=== PATIENT | female | born 1970 | race Caucasian/White ===

== ENCOUNTER 2017-07-13 16:10 | Emergency (ER) | payer SELFPAY ==
[~2017-07-13 16:10] MED LIST: ACE500 PO; AMO500 PO; AUG875 PO; AZI250 PO; AZIT1PAC21 PO; CODEINE; COLD; DIP25 PO; ERY250 PO; FLUT16SP20 NS; GUAI-225 PO; HYDR-3078 PO; HYDR473S4 PO; IBU200 PO; IBU800 PO; IBUP-1455 PO; LOR5 PO; LOR5/325 PO; MULTIVIT PO; NAP250 PO; NO RTN MEDS; PER PO; PRE20 PO; PROC5L PO; TRA50 PO; [UNRECOGNIZED DRUG - CODE] PO; [UNRECOGNIZED DRUG - OTHER]
[2017-07-13 16:30] VITALS: BP 131/85
--- NOTE | 2017-07-13 16:40 | ER Report ---
History and Physical Time Seen By MD: 16:10 HPI/ROS This is a 46-year-old female who presents to the emergency department to a half days after she thinks she had an insect bite while she was sleeping. She is complaining of itching and swelling at the site of the bites on her right hand. She has no other complaints. Remainder of the 14 system rev: Yes Allergies: Coded Allergies: aspirin (Verified Allergy, Mild, RASH, SHAKINESS, 11/19/11) cefuroxime (Verified Allergy, Mild, EYES DILATE, SHAKINESS, 11/19/11) Home Meds Active Scripts Hydrocortisone/Aloe Vera (Cortizone-10 1% Creme) 1 % Cream..g., 1 UNIT TOP QID for 5 Days, GM Prov:ZEINAB BERGER MD 07/13/17 Cephalexin Monohydrate (CEPHALEXIN) 500 Mg Cap, 500 MG PO BID for 5 Days, #10 CAP 0 Refills Prov:ZEINAB BERGER MD 07/13/17 Reported Medications Ibuprofen (Ibuprofen M) 200 Mg Tablet, 800 MG PO 11/19/11 Discontinued Reported Medications Acetaminophen/Hydrocodone (Lortab 5/325 Mg) 5 Mg/325 Mg Tab, 1 - 2 TAB PO Q4-6H Y, #30 11/19/11 Reviewed Nurses Notes: Yes Old Medical Records Reviewed: Yes Hx Smoking: Yes Hx Substance Use Disorder: No Hx Alcohol Use: No Constitutional Vital Sign - Last 24 Hours 07/13/17 16:30 Temp 97.8 Pulse 89 Resp 16 B/P (MAP) 131/85 Pulse Ox 93 O2 Delivery Room Air Physical Exam General Appearance: The patient is alert, has no immediate need for airway protection and no current signs of toxicity. Eyes: Pupils equal and round no injection. Skin: 2 small lesions that could be c/w insect bite on her right dorsal hand. Mild edema. No erythema. No swelling of fingers or evidence of deep infection. No abscess DIFFERENTIAL DIAGNOSIS: After history and physical exam differential diagnosis was considered for deep infection, cellulitis, reaction to bite, abscess Medical Decision Making ED Course/Re-evaluation ED Course This is an otherwise healthy pleasant 46-year-old female who presents to the emergency department with swelling in the dorsal aspect of her right hand and evidence of possible insect bite. There is no evidence of a deep space infection or other abscess. The swelling is likely from the reaction itself. No systemic symptoms of toxic. No abdominal pain. No erythema or warmth to suggest cellulitis. Nonetheless I did give the patient 5 days of Keflex to prevent infection. I also prescribed her cortisone cream to apply to her hand to help with the itching. There was no trauma and no need for imaging. She will follow- up with her primary care doctor. Decision to Disposition Date: July 13, 2017 Decision to Disposition Time: 17:24 Depart Departure Latest Vital Signs Vital Signs Date Time Temp Pulse Resp B/P (MAP) Pulse Ox O2 Delivery O2 Flow Rate FiO2 07/13/17 16:30 97.8 89 16 131/85 93 Room Air Impression: Primary Impression: INSECT BITE (NONVENOMOUS) OF RIGHT HAND, INITIAL ENCOUNTER Condition: Improved Disposition: HOME OR SELF-CARE New Scripts Hydrocortisone/Aloe Vera (Cortizone-10 1% Creme) 1 % Cream..g. 1 UNIT TOP QID for 5 Days, GM Prov: ZEINAB BERGER MD 07/13/17 Cephalexin Monohydrate (CEPHALEXIN) 500 Mg Cap 500 MG PO BID for 5 Days, #10 CAP 0 Refills Prov: ZEINAB BERGER MD 07/13/17 Patient Instructions: Insect Bite or Sting (ED) ZEINAB BERGER MD July 13, 2017 16:40
[2017-07-13] MEDS ORDERED: CEPH500C24 PO (17:32)
[2017-07-13] MEDS ORDERED: HYDR28CR TOP (17:32)
== END 2017-07-13 17:39 | disposition home or self-care (01) ==
LOC: ER 16:22
DX: S60.561A Insect bite (nonvenomous) of right hand, initial encounter (principal)
CPT/HCPCS: 99282

== ENCOUNTER 2017-10-02 14:45 | Emergency (ER) | payer SELFPAY ==
[~2017-10-02 14:45] MED LIST changes: +CEPH500C24 PO; +HYDR28CR TOP
[2017-10-02 14:50] VITALS: BP 123/77
--- NOTE | 2017-10-02 14:52 | ER Report ---
History and Physical Time Seen By MD: 14:51 HPI/ROS CHIEF COMPLAINT: cough HISTORY OF PRESENT ILLNESS: Pt states she started two weeks ago with runny nose , sneezing and cough that was clear sputum. Since then pts symptoms are now only in her chest. Sputum has changed to yellow. Pt denies fever. + cp with the cough. Unable to sleep secondary to coughing. Pt is a smoker REVIEW OF SYSTEMS: Constitutional: No fever, no chills. Eyes: No discharge. ENT: No sore throat, + nasal congestion Cardiovascular: No chest pain, no palpitations. Respiratory: + cough, + shortness of breath. Gastrointestinal: No abdominal pain, no vomiting. Genitourinary: No hematuria. Musculoskeletal: No back pain. Skin: No rashes. Neurological: No headache. Allergies: Coded Allergies: aspirin (Verified Allergy, Mild, RASH, SHAKINESS, 10/02/17) cefuroxime (Verified Allergy, Mild, EYES DILATE, SHAKINESS, 10/02/17) Home Meds Discontinued Reported Medications Ibuprofen (Ibuprofen M) 200 Mg Tablet, 800 MG PO 11/19/11 Discontinued Scripts Hydrocortisone/Aloe Vera (Cortizone-10 1% Creme) 1 % Cream..g., 1 UNIT TOP QID for 5 Days, GM Prov:ZEINAB BERGER MD 07/13/17 Cephalexin Monohydrate (CEPHALEXIN) 500 Mg Cap, 500 MG PO BID for 5 Days, #10 CAP 0 Refills Prov:ZEINAB BERGER MD 07/13/17 Past Medical/Surgical History Pmhx: denies Pshx: ear surgery, tonsilectomy, hyster, r ankle Reviewed Nurses Notes: Yes Old Medical Records Reviewed: Yes Hx Smoking: Yes Smoking Status: Current: Every Day Smoker Hx Substance Use Disorder: No Hx Alcohol Use: No Constitutional Vital Sign - Last 24 Hours 10/02/17 14:50 Resp 20 O2 Delivery Room Air Physical Exam General Appearance: The patient is alert, has no immediate need for airway protection and no signs of toxicity. Eyes: Pupils equal and round no pallor or injection, EOMI ENT: no pharyngeal erythema or exudates, Mucous membranes are moist, TM are nl b/l Respiratory: There are no retractions, + rhonchi , no active wheezing Cardiovascular: Regular rate and rhythm. pulses are equal and symmetrical Gastrointestinal: Abdomen is soft and non tender, no masses, bowel sounds normal, no guarding, no rigidity or rebound Neurological: Cranial nerves II-XII grossly intact, no sensory or motor loss Skin: Warm and dry, no rashes. Musculoskeletal: Neck is supple non tender, no vertebral tenderness Extremities are nontender, non swollen and have full range of motion. DIFFERENTIAL DIAGNOSIS: After history and physical exam differential diagnosis was considered for pnuemonia, bronchitis, uri Medical Decision Making ED Course/Re-evaluation ED Course PT is an active smoker with >10 days of cough. Will treat with abx. Pt declined xray when offered Decision to Disposition Date: Oct 02, 2017 Decision to Disposition Time: 15:00 Depart Departure Latest Vital Signs Vital Signs Date Time Temp Pulse Resp B/P (MAP) Pulse Ox O2 Delivery O2 Flow Rate FiO2 10/02/17 14:50 20 Room Air Impression: Primary Impression: Bronchitis Condition: Condition Unchanged Disposition: HOME OR SELF-CARE New Scripts Promethazine HCl/Codeine (Promethazine-Codeine Syrup) 6.25 Mg-10 Mg/5 Ml Syrup 5 ML PO Q4-6H Y for COUGH, #120 ML Prov: JOHNATHAN RIVERA DO 10/02/17 Azithromycin 250 Mg Tab (AZITHROMYCIN 250 MG TAB) 250 Mg Tablet 250 MG PO QDAY, #6 TAB 2 pills 500mg today then 1 pill 250mg daily for 4 more days. Prov: JOHNATHAN RIVERA DO 10/02/17 Patient Instructions: Acute Bronchitis (GEN) Additional Instructions: zithromax 500mg today then 250mg once a day for 4 more days. Cough syrup one teaspoon every 4 hours as needed for cough. Follow up with your doctor. JOHNATHAN RIVERA DO Oct 02, 2017 14:52
[2017-10-02] MEDS ORDERED: AZIT-18 PO (15:06)
[2017-10-02] MEDS ORDERED: PROM473S4 PO (15:06)
== END 2017-10-02 15:14 | disposition home or self-care (01) ==
LOC: ER 14:53
DX: J40 Bronchitis, not specified as acute or chronic (principal); F17.200 Nicotine dependence, unspecified, uncomplicated
CPT/HCPCS: 99282

== ENCOUNTER 2017-12-26 09:06 | Emergency (ER) | payer SELFPAY ==
[~2017-12-26 09:06] MED LIST changes: +AZIT-18 PO; +PROM473S4 PO
[2017-12-26 09:17] VITALS: BP 130/87
--- NOTE | 2017-12-26 10:23 | RADIOLOGY IMAGING REPORT ---
FACILITY: [facility] PATIENT NAME: Elvira Rey : 1970 MR: [id number] V: [id number] EXAM DATE: ORDERING PHYSICIAN: BEVERLY BENITEZ TECHNOLOGIST: Location: [facility] [place] Patient: Elvira Rey : 1970 Visit/Account:[id number] Date of Sevice: 12/26/2017 Exam type: ELBOW 3 VIEWS RIGHT History: SWELLING,PAIN, trauma Comparison: None. Findings: There is no evidence of acute fracture, dislocation or significant arthritic change involving the rig ht elbow. IMPRESSION: 1. No evidence of acute fracture, dislocation or significant arthritic change involving the right el bow Report Dictated By: Myranda Renteria MD at 12/26/2017 10:18 AM Report E-Signed By: Myranda Renteria MD at 12/26/2017 10:19 AM WSN:[email or web address]
--- NOTE | 2017-12-26 10:35 | ER Report ---
History and Physical Time Seen By MD: 10:32 Hx. of Stated Complaint: Patient was walking her dog on a leash yesterday and he pulled her arm, and she heard a pop in her right elbow HPI/ROS CHIEF COMPLAINT: Right elbow pain HISTORY OF PRESENT ILLNESS: Patient is a 47-year-old female here with complaints of right elbow pain after being pulled by her dog last night. Patient reports having medial posterior elbow tenderness with range of motion and palpation. Patient denies weakness of the distal extremity or further injury at this time. REVIEW OF SYSTEMS: Constitutional: No fever, no chills. Musculoskeletal: Right medial posterior elbow pain Skin: No ecchymosis or pallor Neurological: Patient is neurovascularly intact distal to the injury site Allergies: Coded Allergies: aspirin (Verified Allergy, Mild, RASH, SHAKINESS, 12/26/17) cefuroxime (Verified Allergy, Mild, EYES DILATE, SHAKINESS, 12/26/17) albuterol (Verified Adverse Reaction, Unknown, shaky headache, 12/26/17) Home Meds Active Scripts Tramadol Hcl (TRAMADOL HCL) 50 Mg Tablet, 50 MG PO Q6H PRN for PAIN, #12 TAB 0 Refills Prov:BEVERLY BENITEZ DO 12/26/17 Naproxen Sodium (ALEVE) 220 Mg Capsule, 440 MG PO TID, #30 CAPSULE Prov:BEVERLY BENITEZ DO 12/26/17 Discontinued Scripts Promethazine HCl/Codeine (Promethazine-Codeine Syrup) 6.25 Mg-10 Mg/5 Ml Syrup, 5 ML PO Q4-6H PRN for COUGH, #120 ML Prov:JOHNATHAN RIVERA V DO 10/02/17 Azithromycin 250 Mg Tab (AZITHROMYCIN 250 MG TAB) 250 Mg Tablet, 250 MG PO QDAY, #6 TAB 2 pills 500mg today then 1 pill 250mg daily for 4 more days. Prov:JOHNATHAN RIVERA V DO 10/02/17 Hx Smoking: Yes Smoking Status: Current: Every Day Smoker Hx Substance Use Disorder: No Hx Alcohol Use: No Constitutional Vital Sign - Last 24 Hours 12/26/17 09:17 Temp 98.4 Pulse 69 Resp 18 B/P (MAP) 130/87 Pulse Ox 93 O2 Delivery Room Air Physical Exam General Appearance: The patient is alert, has no immediate need for airway protection and no signs of toxicity. No acute distress Neurological: Neurovascularly intact distal to the extremity section Skin: Warm and dry, no rashes. Musculoskeletal: Tender to palpation on the right medial posterior elbow, pain with range of rowdy on. [ ] DIFFERENTIAL DIAGNOSIS: After history and physical exam differential diagnosis was considered for contusion, fracture, dislocation, sprain. Medical Decision Making EKG/Imaging Imaging Exam type: ELBOW 3 VIEWS RIGHT History: SWELLING,PAIN, trauma Comparison: None. Findings: There is no evidence of acute fracture, dislocation or significant arthritic change involving the right elbow. IMPRESSION: 1. No evidence of acute fracture, dislocation or significant arthritic change involving the right elbow ED Course/Re-evaluation ED Course Patient is a 39-year-old female here with complaints of right elbow pain in the medial and posterior aspect of the elbow which is tender on palpation and with range of motion. There is no obvious deformity at time of evaluation, patient was neurovascularly intact distal to the injury site with good capillary refill. X-ray imaging showed no acute deformities. Patient was provided prescription for tramadol naproxen and advised to follow up with PCP in the next several days. Patient was stable at time of discharge, afebrile and in no acute distress. Patient was provided with a sling for comfort. Decision to Disposition Date: Dec 26, 2017 Decision to Disposition Time: 10:45 Depart Departure Latest Vital Signs Vital Signs Date Time Temp Pulse Resp B/P (MAP) Pulse Ox O2 Delivery O2 Flow Rate FiO2 12/26/17 09:17 98.4 69 18 130/87 93 Room Air Impression: Primary Impression: Elbow sprain Condition: Improved Disposition: HOME OR SELF-CARE New Scripts Tramadol Hcl (TRAMADOL HCL) 50 Mg Tablet 50 MG PO Q6H PRN for PAIN, #12 TAB 0 Refills Prov: BEVERLY BENITEZ DO 12/26/17 Naproxen Sodium (ALEVE) 220 Mg Capsule 440 MG PO TID, #30 CAPSULE Prov: BEVERLY BENITEZ DO 12/26/17 Departure Forms: ER Transition Record, Medications Reconciliation, Off Work/School Form, School or Work Release?: Work Number of days to be released: 1 Patient Portal Information Patient Instructions: Arm Pain (ED) Additional Instructions: You may take 500 mg tablet naproxen every 12 hours as needed for pain control. He may take tramadol 1 tablet every 6-8 hours as needed for pain control breakthrough. You may use a sling for comfort. Please apply ice, rest, elevate as needed for pain control. Please return if you develop worsening pain, numbness or tingling, weakness in the arms BEVERLY BENITEZ DO Dec 26, 2017 10:35
[2017-12-26] MEDS ORDERED: NAPR220C12 PO (10:46)
[2017-12-26] MEDS ORDERED: TRAM-420 PO (10:46)
== END 2017-12-26 11:06 | disposition home or self-care (01) ==
LOC: ER 09:26
DX: S53.401A Unspecified sprain of right elbow, initial encounter (principal)
CPT/HCPCS: 73080; 99283; A4565

== ENCOUNTER 2018-01-11 04:34 | Emergency (ER) | payer BC ==
[~2018-01-11 04:34] MED LIST changes: +NAPR220C12 PO; +TRAM-420 PO
--- NOTE | 2018-01-11 04:37 | ER Report ---
History and Physical Time Seen By MD: 04:43 (SHON GRIJALVA MD) Time Seen By MD: 07:00 (PRABHJOT BERGER MD) HPI/ROS CHIEF COMPLAINT: Abdominal pain and nausea HISTORY OF PRESENT ILLNESS: This is a 47-year-old female. She woke this morning with some abdominal discomfort which is worsened. She has some stabbing and cramping quality pain in the left abdomen. He was to worsen with movement. Nothing makes it better. She has been having some nausea but no vomiting. She did have a bowel movement this morning which was not diarrhea but was a little loose. She denies any pain or difficulty urinating or urinary frequency. No fevers or chills this morning. REVIEW OF SYSTEMS: Constitutional: No fever or chills. Eyes: No vision changes. ENT: No sore throat. No congestion. Cardiovascular: No chest pain. No palpitations. Respiratory: No cough. No shortness of breath. Gastrointestinal: As above. Genitourinary: As above. Musculoskeletal: No back pain. No extremity pain. Skin: No rashes. No bruising. Neurological: No numbness. No weakness. (SHON GRIJALVA MD) HPI/ROS CHIEF COMPLAINT: abdominal pain HISTORY OF PRESENT ILLNESS: Patient awoke with left lower quadrant abdominal pain at approximately zero 100 last night. Pain has persisted through the night is now with left lower quadrant, suprapubic, right lower abdominal pain. Pain is persistent, moderately severe. Patient complains of nausea but no vomiting. No fevers or chills. No weight loss, night sweats. No chest pain, shortness breath. No vaginal bleeding. No diarrhea/constipation REVIEW OF SYSTEMS: Constitutional: No fever, no chills. Eyes: No discharge. ENT: No sore throat. Cardiovascular: No chest pain, no palpitations. Respiratory: No cough, no shortness of breath. Gastrointestinal: above Genitourinary: No hematuria. Musculoskeletal: No back pain. Skin: No rashes. Neurological: No headache. Remainder of the 14 system rev: Yes (PRABHJOT BERGER MD) Allergies: Coded Allergies: aspirin (Verified Allergy, Mild, RASH, SHAKINESS, 12/26/17) cefuroxime (Verified Allergy, Mild, EYES DILATE, SHAKINESS, 12/26/17) albuterol (Verified Adverse Reaction, Unknown, shaky headache, 12/26/17) Home Meds Active Scripts Docusate Sodium (COLACE) 100 Mg Capsule, 100 MG PO BID for 10 Days, #20 CAPSULE Prov:PRABHJOT BERGER MD 01/11/18 Hydrocodone Bit/Acetaminophen (NORCO 5-325 TABLET) 1 Each Tablet, 1 EACH PO Q4- 6H for PAIN for 7 Days, #20 TAB Prov:PRABHJOT BERGER MD 01/11/18 Discontinued Scripts Tramadol Hcl (TRAMADOL HCL) 50 Mg Tablet, 50 MG PO Q6H PRN for PAIN, #12 TAB 0 Refills Prov:BEVERLY BENITEZ DO 12/26/17 Naproxen Sodium (ALEVE) 220 Mg Capsule, 440 MG PO TID, #30 CAPSULE Prov:BENITEZLIZETHBEVERLY S DO 12/26/17 Reviewed Nurses Notes: Yes (SHON GRIJLAVA MD) Reviewed Nurses Notes: Yes Old Medical Records Reviewed: Yes (PRABHJOT BERGER MD) Hx Smoking: Yes Smoking Status: Current: Every Day Smoker Hx Substance Use Disorder: No Hx Alcohol Use: No (SHON GRIJALVA MD) Constitutional Vital Sign - Last 24 Hours 01/11/18 01/11/18 01/11/18 01/11/18 04:34 04:43 04:43 05:04 Temp 98.3 Pulse ??? 74 81 Resp 16 B/P (MAP) 133/83 133/83 (100) Pulse Ox 93 94 O2 Delivery Blow-by 01/11/18 01/11/18 01/11/18 01/11/18 05:34 06:00 06:04 06:07 Pulse 75 B/P (MAP) 121/79 (93) 107/70 (82) Pulse Ox 88 87 01/11/18 01/11/18 01/11/18 01/11/18 06:12 06:30 06:42 07:12 Pulse 78 65 64 B/P (MAP) 112/79 (90) Pulse Ox 92 94 96 01/11/18 01/11/18 01/11/18 01/11/18 07:17 07:29 07:47 08:00 Pulse 63 65 B/P (MAP) 112/68 (83) 95/60 (72) Pulse Ox 95 95 01/11/18 08:17 Pulse 67 (PRABHJOT BERGER MD) Physical Exam General Appearance: The patient is alert she is having some acute distress from pain Eyes: Pupils are equal, round. No pallor, injection or icterus. ENT: Mucous membranes are moist. Respiratory: Lungs are clear to auscultation. Cardiovascular: Regular rate and rhythm. No murmurs, gallops or rubs. Normal capillary refill. Gastrointestinal: Abdomen is soft, tender mainly in the left upper and lower quadrants and slightly in the suprapubic area. Nondistended. Guarding but no jo ann ound. Hyperactive bowel sounds. No costovertebral angle tenderness with percussion. Neurological: Alert and oriented x3. No focal neurologic deficits Skin: Warm and dry. Musculoskeletal: No tenderness in the back or spine area. DIFFERENTIAL DIAGNOSIS: After history and physical exam, differential diagnosis was considered for abdominal pain including but not limited to colitis, gastroenteritis, urinary infection (SHON GRIJALVA MD) Physical Exam General Appearance: The patient is alert, has no immediate need for airway protection and no signs of toxicity. [ ] Eyes: Pupils equal and round no pallor or injection. ENT, Mouth: Mucous membranes are moist. Respiratory: There are no retractions, lungs are clear to auscultation. Cardiovascular: Regular rate and rhythm. Gastrointestinal: left lower quadrant, suprapubic, rlq ttp, no peritoneal sgs. Neurological: alert, oriented Skin: Warm and dry, no rashes. Musculoskeletal: Extremities are nontender, nonswollen and have full range of motion. [ ] DIFFERENTIAL DIAGNOSIS: After history and physical exam differential diagnosis was considered for abdominal pain including but not limited to appendicitis, cholecystitis, gastritis and urinary tract infection. (PRABHJOT BERGER MD) Medical Decision Making Data Points Result Diagram: 01/11/18 0500 01/11/18 0500 Laboratory Hematology Test 01/11/18 04:38 01/11/18 05:00 Urine Color Yellow Urine Clarity Cloudy Urine pH 5.0 pH (4.8-9.5) Urine Specific [place] 1.020 Urine Protein Negative mg/dL (NEGATIVE) Urine Glucose (UA) Negative mg/dL (NEGATIVE) Urine Ketones Negative mg/dL (NEGATIVE) Urine Blood Negative (NEGATIVE) Urine Nitrite Negative (NEGATIVE) Urine Bilirubin Negative (NEGATIVE) Urine Urobilinogen Negative mg/dL (0.2-1.9) Urine Leukocyte Esterase Negative (NEGATIVE) Urine RBC 3 /HPF (0-2/HPF) Urine WBC 11 /HPF (0-5/HPF) Urine Squamous Epithelial Cells Many /LPF (</=FEW) Urine Transitional Epithelial Cells Few /LPF (NONE-FEW) Urine Bacteria Many /HPF (NONE-FEW) Urine Mucus Few /HPF (NONE-FEW) Red Blood Count 5.09 M/uL (4.17-5.56) Mean Corpuscular Volume 87.6 fL (80.0-96.0) Mean Corpuscular Hemoglobin 29.4 pg (26.0-33.0) Mean Corpuscular Hemoglobin Concent 33.6 g/dL (32.0-36.0) Red Cell Distribution Width 14.6 % (11.5-14.5) Mean Platelet Volume 7.2 fL (7.2-11.1) Neutrophils (%) (Auto) 62.4 % (39.4-72.5) Lymphocytes (%) (Auto) 28.4 % (17.6-49.6) Monocytes (%) (Auto) 7.2 % (4.1-12.4) Eosinophils (%) (Auto) 1.2 % (0.4-6.7) Basophils (%) (Auto) 0.8 % (0.3-1.4) Nucleated RBC Relative Count (auto) 0.0 /100WBC Neutrophils # (Auto) 4.3 K/uL (2.0-7.4) Lymphocytes # (Auto) 2.0 K/uL (1.3-3.6) Monocytes # (Auto) 0.5 K/uL (0.3-1.0) Eosinophils # (Auto) 0.1 K/uL (0.0-0.5) Basophils # (Auto) 0.1 K/uL (0.0-0.1) Nucleated RBC Absolute Count (auto) 0.00 K/uL Sodium Level 138 mmol/L (137-145) Potassium Level 4.2 mmol/L (3.5-5.0) Chloride Level 107 mmol/L (98-107) Carbon Dioxide Level 22 mmol/L (22-31) Blood Urea Nitrogen 13 mg/dl (7-18) Creatinine 0.60 mg/dl (0.52-1.04) Glomerular Filtration Rate Calc > 60.0 Random Glucose 136 mg/dl (75-110) Calcium Level 9.5 mg/dl (8.4-10.2) Total Bilirubin 0.2 mg/dl (0.2-1.3) Aspartate Amino Transf (AST/SGOT) 19 U/L (0-35) Alanine Aminotransferase (ALT/SGPT) 31 U/L (0-56) Alkaline Phosphatase 66 U/L (0-126) Total Protein 6.8 g/dl (6.3-8.2) Albumin 4.0 g/dl (3.5-5.0) Amylase Level 39 U/L (0-110) Lipase 59 U/L (23-300) Chemistry Test 01/11/18 04:38 01/11/18 05:00 Urine Color Yellow Urine Clarity Cloudy Urine pH 5.0 pH (4.8-9.5) Urine Specific [place] 1.020 Urine Protein Negative mg/dL (NEGATIVE) Urine Glucose (UA) Negative mg/dL (NEGATIVE) Urine Ketones Negative mg/dL (NEGATIVE) Urine Blood Negative (NEGATIVE) Urine Nitrite Negative (NEGATIVE) Urine Bilirubin Negative (NEGATIVE) Urine Urobilinogen Negative mg/dL (0.2-1.9) Urine Leukocyte Esterase Negative (NEGATIVE) Urine RBC 3 /HPF (0-2/HPF) Urine WBC 11 /HPF (0-5/HPF) Urine Squamous Epithelial Cells Many /LPF (</=FEW) Urine Transitional Epithelial Cells Few /LPF (NONE-FEW) Urine Bacteria Many /HPF (NONE-FEW) Urine Mucus Few /HPF (NONE-FEW) White Blood Count 6.9 k/uL (4.5-11.0) Red Blood Count 5.09 M/uL (4.17-5.56) Hemoglobin 15.0 g/dL (12.0-16.0) Hematocrit 44.6 % (34.0-47.0) Mean Corpuscular Volume 87.6 fL (80.0-96.0) Mean Corpuscular Hemoglobin 29.4 pg (26.0-33.0) Mean Corpuscular Hemoglobin Concent 33.6 g/dL (32.0-36.0) Red Cell Distribution Width 14.6 % (11.5-14.5) Platelet Count 256 K/uL (150-450) Mean Platelet Volume 7.2 fL (7.2-11.1) Neutrophils (%) (Auto) 62.4 % (39.4-72.5) Lymphocytes (%) (Auto) 28.4 % (17.6-49.6) Monocytes (%) (Auto) 7.2 % (4.1-12.4) Eosinophils (%) (Auto) 1.2 % (0.4-6.7) Basophils (%) (Auto) 0.8 % (0.3-1.4) Nucleated RBC Relative Count (auto) 0.0 /100WBC Neutrophils # (Auto) 4.3 K/uL (2.0-7.4) Lymphocytes # (Auto) 2.0 K/uL (1.3-3.6) Monocytes # (Auto) 0.5 K/uL (0.3-1.0) Eosinophils # (Auto) 0.1 K/uL (0.0-0.5) Basophils # (Auto) 0.1 K/uL (0.0-0.1) Nucleated RBC Absolute Count (auto) 0.00 K/uL Glomerular Filtration Rate Calc > 60.0 Calcium Level 9.5 mg/dl (8.4-10.2) Total Bilirubin 0.2 mg/dl (0.2-1.3) Aspartate Amino Transf (AST/SGOT) 19 U/L (0-35) Alanine Aminotransferase (ALT/SGPT) 31 U/L (0-56) Alkaline Phosphatase 66 U/L (0-126) Total Protein 6.8 g/dl (6.3-8.2) Albumin 4.0 g/dl (3.5-5.0) Amylase Level 39 U/L (0-110) Lipase 59 U/L (23-300) Urinalysis Test 01/11/18 04:38 Urine Color Yellow Urine Clarity Cloudy Urine pH 5.0 pH (4.8-9.5) Urine Specific [place] 1.020 Urine Protein Negative mg/dL (NEGATIVE) Urine Glucose (UA) Negative mg/dL (NEGATIVE) Urine Ketones Negative mg/dL (NEGATIVE) Urine Blood Negative (NEGATIVE) Urine Nitrite Negative (NEGATIVE) Urine Bilirubin Negative (NEGATIVE) Urine Urobilinogen Negative mg/dL (0.2-1.9) Urine Leukocyte Esterase Negative (NEGATIVE) Urine RBC 3 /HPF (0-2/HPF) Urine WBC 11 /HPF (0-5/HPF) Urine Squamous Epithelial Cells Many /LPF (</=FEW) Urine Transitional Epithelial Cells Few /LPF (NONE-FEW) Urine Bacteria Many /HPF (NONE-FEW) Urine Mucus Few /HPF (NONE-FEW) (RPABHJOT BERGER MD) EKG/Imaging Imaging COMPUTED TOMOGRAPHY ABDOMEN AND PELVIS WITH INTRAVENOUS CONTRAST DATE OF EXAM: 01/11/2018 4:53 AM INDICATION: Left-sided abdominal pain. COMPARISON: . TECHNIQUE: Contrast enhanced abdomen and pelvis CT performed during the injection of 75 ml of Isovue 370. Sagittal and coronal reconstructions were performed. One of the following dose optimization techniques was utilized in the performance of this exam: Automated exposure control; adjustment of the mA and/or kV according to the patient's size; or use of an iterative reconstruction technique. Specific details can be referenced in the facility's radiology CT exam operational policy. FINDINGS: Lung bases: Mild scarring/atelectasis. Liver and hepatic vasculature: Liver is borderline enlarged. Subcentimeter hy poattenuating lesion in segment 6 likely represents a cyst or hemangioma, image 65 series 2. No suspicious lesion or acute abnormality. Gallbladder and bile ducts: Normal. Spleen: Calcified granulomas. Pancreas: Normal. Adrenals: Mildly nodular. Kidneys, ureters and bladder: Normal. Retroperitoneum and aorta: Nonaneurysmal aorta with mild atherosclerosis. No adenopathy. GI tract, mesentery and peritoneum: No evidence of obstruction. No pneumatosis or pneumoperitoneum. Moderate sigmoid diverticulosis. Appendix appears nonacute. Trace free fluid along the right paracolic gutter. Uterus and adnexa: Hysterectomy. There is a markedly heterogeneous structure in the pelvis that likely arises from the right adnexa measuring approximately 8.9 x 5.5 cm on axial image 125 series 2. There may be adjacent fluid and/or blood products. This is confluent with the adjacent appendix, cecum and sigmoid colon. Bones and soft tissues: No acute abnormality or suspicious lesion. IMPRESSION: Indeterminate heterogeneous pelvic lesion in the setting of reported hysterectomy. The lesion and surrounding fluid/soft tissue are inseparable from the cecum, appendix and adjacent sigmoid colon. Top differential considerations include ovarian neoplasm with or without torsion, other primary pelvic neoplasm, hemorrhage, and tubo-ovarian abscess, though this last may be less likely given the lack of prominent surrounding inflammation and history of hysterectomy. There was a complex lesion in the right adnexa on prior examinations and the current clinical situation is likely at least in part related to that. Sequela of diverticulitis is also considered less likely. Pelvic ultrasound may be of limited benefit for further evaluation, but is a reasonable next step given the broad differential. Dr. Carbajal discussed this case with SHON GRIJALVA on 01/11/2018 6:08 AM. Report Dictated By: Venancio Carbajal MD at 01/11/2018 5:46 AM (SHON RGIJALVA MD) ED Course/Re-evaluation Clinical Indication for ER IV: Hydration, IV Access ED Course IV started and labs obtained. The patient was given Morphine 4mg IV to help with pain and Zofran 4mg IV for nausea. Given 1000cc of normal saline. Labs show a normal white count. Urine looks like a contaminated sample. Labs otherwise normal. CT scan with pelvic mass as noted above. (SHON GRIJALVA MD) ED Course Pt t/o to me at 0700 awaiting us; ct showed r adnex mass v cecal mass; us returns showing adnexal mass with hemorrhage. I consulted OB; Dr. De La O evaluated images in ED; recommends outpt f/u; we discussed possibility of torsion despite blood flow; as pt does not have peritoneal sgs, she feels this is less likely. tumor marker sent; on re-eval pt comfortable; will f/u with Dr. De La O in next week for re-evaluation, but understands strict rtn precautions. Addendum: I called pt at 0740 on 01/12; she stated she is in more pain; I requested she return to ED for further evaluation Decision to Disposition Date: Jan 11, 2018 Decision to Disposition Time: 08:30 (PRABHJOT BERGER MD) Depart Departure Latest Vital Signs Vital Signs Date Time Temp Pulse Resp B/P (MAP) Pulse Ox O2 Delivery O2 Flow Rate FiO2 01/11/18 08:17 67 01/11/18 08:00 95/60 (72) 01/11/18 07:47 95 01/11/18 04:43 98.3 16 Blow-by (PRABHJOT BERGER MD) Impression: Primary Impression: Adnexal mass Condition: Improved Disposition: HOME OR SELF-CARE Referrals: KAREEN DE LA O MD 5 Days New Scripts Docusate Sodium (COLACE) 100 Mg Capsule 100 MG PO BID for 10 Days, #20 CAPSULE Prov: PRABHJOT BERGER MD 01/11/18 Hydrocodone Bit/Acetaminophen (NORCO 5-325 TABLET) 1 Each Tablet 1 EACH PO Q4-6H for PAIN for 7 Days, #20 TAB Prov: PRABHJOT BERGER MD 01/11/18 Departure Forms: ER Transition Record, Medications Reconciliation, Off Work/School Form, School or Work Release?: Work Number of days to be released: 2 Patient Portal Information Additional Instructions: As we discussed, follow up [facility] [place] Dr. De La O's office early next week. Return to ED immediately for uncontrolled pain, lightheadedness, or any concerns. Take colace twice daily as long as you are taking norco, to prevent constipation. Do not drive or operate machinery while taking norco. SHON GRIJALVA MD Jan 11, 2018 04:37 PRABHJOT BERGER MD Jan 11, 2018 08:37
[2018-01-11] MEDS ORDERED: NS(*) 0.9% 1000 ML BAG 1,000 ML IV ONE (04:53)
[2018-01-11] MEDS ORDERED: MORPHINE 4 MG/ML SDV IVP ONE ×3 (04:55→07:15)
[2018-01-11] MEDS ORDERED: ONDANSETRON 4 MG/2 ML VIAL IVP ONE (04:55)
[2018-01-11] MEDS ORDERED: IOPAMIDOL 76% 75 ML INFUS BTL 75 ML ONE (05:08)
[2018-01-11 05:39] LABS: PLATELET COUNT, AUTOMATED 256 K/uL (150-450)
--- NOTE | 2018-01-11 06:16 | RADIOLOGY IMAGING REPORT ---
FACILITY: [facility] - [place] PATIENT NAME: Elvira Rey : 1970 MR: [id number] V: [id number] EXAM DATE: [id number] ORDERING PHYSICIAN: SHON GRIJALVA TECHNOLOGIST: Location: [facility] [place] Patient: Elvira Rey : 1970 Visit/Account:[id number] Date of Sevice: 01/11/2018 COMPUTED TOMOGRAPHY ABDOMEN AND PELVIS WITH INTRAVENOUS CONTRAST DATE OF EXAM: 01/11/2018 4:53 AM INDICATION: Left-sided abdominal pain. COMPARISON: . TECHNIQUE: Contrast enhanced abdomen and pelvis CT performed during the injection of 75 ml of Isovue 370. Sagittal and coronal reconstructions were performed. One of the following dose optimization te chniques was utilized in the performance of this exam: Automated exposure control; adjustment of the mA and/or kV according to the patient's size; or use of an iterative reconstruction technique. Spec [facility] details can be referenced in the facility's radiology CT exam operational policy. FINDINGS: Lung bases: Mild scarring/atelectasis. Liver and hepatic vasculature: Liver is borderline enlarged. Subcentimeter hypoattenuating lesion i n segment 6 likely represents a cyst or hemangioma, image 65 series 2. No suspicious lesion or acute abnormality. Gallbladder and bile ducts: Normal. Spleen: Calcified granulomas. Pancreas: Normal. Adrenals: Mildly nodular. Kidneys, ureters and bladder: Normal. Retroperitoneum and aorta: Nonaneurysmal aorta with mild atherosclerosis. No adenopathy. GI tract, mesentery and peritoneum: No evidence of obstruction. No pneumatosis or pneumoperitoneum. Moderate sigmoid diverticulosis. Appendix appears nonacute. Trace free fluid along the right para colic gutter. Uterus and adnexa: Hysterectomy. There is a markedly heterogeneous structure in the pelvis that like ly arises from the right adnexa measuring approximately 8.9 x 5.5 cm on axial image 125 series 2. Th ere may be adjacent fluid and/or blood products. This is confluent with the adjacent appendix, cecum and sigmoid colon. Bones and soft tissues: No acute abnormality or suspicious lesion. IMPRESSION: Indeterminate heterogeneous pelvic lesion in the setting of reported hysterectomy. The l esion and surrounding fluid/soft tissue are inseparable from the cecum, appendix and adjacent sigmoid colon. Top differential considerations include ovarian neoplasm with or without torsion, other prim bernabe pelvic neoplasm, hemorrhage, and tubo-ovarian abscess, though this last may be less likely given the lack of prominent surrounding inflammation and history of hysterectomy. There was a complex lesi on in the right adnexa on prior examinations and the current clinical situation is likely at least in part related to that. Sequela of diverticulitis is also considered less likely. Pelvic ultrasound may be of limited benefit for further evaluation, but is a reasonable next step given the broad diffe rential. Dr. Carbajal discussed this case with SHON GRIJALVA on 01/11/2018 6:08 AM. Report Dictated By: Venancio Carbajal MD at 01/11/2018 5:46 AM Report E-Signed By: Venancio Carbajal MD at 01/11/2018 6:12 AM WSN:[id number]
--- NOTE | 2018-01-11 07:37 | RADIOLOGY IMAGING REPORT ---
FACILITY: [facility] PATIENT NAME: Elvira Rey : 1970 MR: [id number] V: [id number] EXAM DATE: ORDERING PHYSICIAN: SHON GRIJALVA TECHNOLOGIST: Location: [facility] Patient: Elvira Rey : 1970 Visit/Account:[id number] Date of Sevice: 01/11/2018 Ultrasound of the pelvis: Indication: Pelvic pain. Follow-up to abnormal CT scan. Technique: Transvaginal imaging, with Doppler. Comparison: 11/21/2011 Uterus: Surgically absent. Right ovary/adnexa: The right ovary is enlarged and heterogeneous in echogenicity, measuring 7.7 x 5. 8 x 4.3 cm, which represents an increase. Multiple cystic areas are present. Some areas are echogenic , suggesting hemorrhage. The differential diagnosis includes complex ovarian cystic disease or possib le neoplasm. Doppler images demonstrate normal arterial and venous flow signals. There are no signs o f torsion. There is heterogeneous fluid around the right ovary, also suggesting hemorrhage. Left ovary/adnexa: The left ovary was not visualized. Free fluid: There is a small amount of heterogeneous fluid. IMPRESSION: There is an abnormal appearance of the right ovary, as described above. The differential diagnosis includes complex ovarian cystic disease or possible neoplasm. There appears to be some hemo rrhagic fluid. There are no signs of torsion. Surgical consultation is suggested. Report Dictated By: Omid Donahue MD at 01/11/2018 7:23 AM Report E-Signed By: Omid Donahue MD at 01/11/2018 7:32 AM WSN:[id number]
[2018-01-11 08:00] VITALS: BP 95/60
[2018-01-11] MEDS ORDERED: DOCU-416 PO (08:35)
[2018-01-11] MEDS ORDERED: HYDR-653 PO (08:35)
[2018-01-12] MEDS ORDERED: OXYC-373 PO (12:24)
[2018-01-12] MEDS ORDERED: PROM-110 PO (12:50)
== END 2018-01-11 08:45 | disposition home or self-care (01) ==
LOC: ER 04:45
DX: R19.09 Other intra-abdominal and pelvic swelling, mass and lump (principal)
CPT/HCPCS: 74177; 76830; 81001; 82150; 83690; 85025; 86304; 96361; 96374; 96375; 96376; 99284; J2270; J2405; J7030; Q9967; 82040; 82247; 82310; 82374; 82435; 82565; 82947; 84075; 84132; 84155; 84295; 84450; 84460; 84520

== ENCOUNTER 2018-01-12 08:12 | Emergency (ER) | payer BC ==
[~2018-01-12 08:12] MED LIST changes: +DOCU-416 PO; +HYDR-653 PO
[2018-01-12] MEDS ORDERED: fentaNYL CITR 100 MCG/2 ML AMP IVP ONE ×2 (08:25→10:50)
--- NOTE | 2018-01-12 08:30 | ER Report ---
History and Physical Time Seen By MD: 08:20 HPI/ROS CHIEF COMPLAINT: lower abdominal pain HISTORY OF PRESENT ILLNESS: Pt returns after ED evaluation yesterday showed r adnexal complex mass; she has had ongoing and worsening lower abdominal pain, 8/10, suprapubic and bilat LQ, L > R. Pain worse with standing. Not relieved by vicodin. She has had nausea, no vomiting. Nofevers, dysuria, diarrhea, constipation. No vaginal bleeding. REVIEW OF SYSTEMS: Constitutional: No fever, no chills. Eyes: No discharge. ENT: No sore throat. Cardiovascular: No chest pain, no palpitations. Respiratory: No cough, no shortness of breath. Gastrointestinal: above Genitourinary: no dysuria Musculoskeletal: No back pain. Skin: No rashes. Neurological: headache when taking norco Remainder of the 14 system rev: Yes Allergies: Coded Allergies: aspirin (Verified Allergy, Mild, RASH, SHAKINESS, 01/12/18) cefuroxime (Verified Allergy, Mild, EYES DILATE, SHAKINESS, 01/12/18) albuterol (Verified Adverse Reaction, Unknown, shaky headache, 01/12/18) Home Meds Active Scripts Promethazine Hcl (PROMETHAZINE HCL) 25 Mg Tablet, 25 MG PO Q8H for Nausea, #20 TAB Prov:PRABHJOT BERGER MD 01/12/18 Oxycodone Hcl/Acetaminophen (OXYCODONE-ACETAMINOPHEN 5-325) 1 Each Tablet, 1 EACH PO Q6H PRN for PAIN, #30 TAB Prov:ANGELINA MCNAIR DO 01/12/18 Docusate Sodium (COLACE) 100 Mg Capsule, 100 MG PO BID for 10 Days, #20 CAPSULE Prov:PRABHJOT BERGER MD 01/11/18 Hydrocodone Bit/Acetaminophen (NORCO 5-325 TABLET) 1 Each Tablet, 1 EACH PO Q4- 6H for PAIN for 7 Days, #20 TAB Prov:PRABHJOT BERGER MD 01/11/18 Discontinued Scripts Tramadol Hcl (TRAMADOL HCL) 50 Mg Tablet, 50 MG PO Q6H PRN for PAIN, #12 TAB 0 Refills Prov:BEVERLY BENITEZ DO 12/26/17 Naproxen Sodium (ALEVE) 220 Mg Capsule, 440 MG PO TID, #30 CAPSULE Prov:BEVERLY BENITEZ DO 12/26/17 Reviewed Nurses Notes: Yes Old Medical Records Reviewed: Yes Hx Smoking: Yes Smoking Status: Current: Every Day Smoker Hx Substance Use Disorder: No Hx Alcohol Use: No Constitutional Vital Sign - Last 24 Hours 01/12/18 01/12/18 01/12/18 01/12/18 08:12 08:19 08:21 08:27 Temp 97.8 Pulse ??? 77 75 Resp 18 B/P (MAP) 137/84 (101) 137/84 Pulse Ox 93 93 O2 Delivery Room Air 01/12/18 01/12/18 01/12/18 01/12/18 08:31 08:42 08:57 09:00 Pulse 84 72 B/P (MAP) 124/68 (86) 109/69 (82) Pulse Ox 93 94 01/12/18 01/12/18 01/12/18 01/12/18 09:12 09:27 09:30 09:42 Pulse 68 59 61 B/P (MAP) 103/73 (83) Pulse Ox 94 97 95 O2 Delivery Nasal Cannula O2 Flow Rate 2 01/12/18 01/12/18 01/12/18 01/12/18 09:57 10:00 10:05 10:20 Pulse 57 58 ??? B/P (MAP) 105/75 (85) Pulse Ox 97 98 97 O2 Delivery Nasal Cannula O2 Flow Rate 2 01/12/18 01/12/18 01/12/18 01/12/18 10:30 10:35 10:50 11:00 Pulse ??? 67 B/P (MAP) 104/64 (77) 105/72 (83) Pulse Ox 97 96 01/12/18 01/12/18 01/12/18 01/12/18 11:05 11:20 11:30 11:35 Pulse 65 73 70 B/P (MAP) 124/80 (95) Pulse Ox 96 98 97 O2 Delivery Nasal Cannula O2 Flow Rate 2 01/12/18 01/12/18 01/12/18 01/12/18 11:50 11:55 12:00 12:10 Pulse 67 ??? 74 B/P (MAP) 141/97 (112) Pulse Ox 97 O2 Delivery Nasal Cannula O2 Flow Rate 2 01/12/18 01/12/18 01/12/18 01/12/18 12:25 12:30 12:40 12:53 Pulse 66 B/P (MAP) 119/86 (97) 135/87 (103) Pulse Ox 90 97 O2 Delivery Nasal Cannula Nasal Cannula O2 Flow Rate 2 2 01/12/18 12:55 Pulse Ox 98 O2 Delivery Nasal Cannula O2 Flow Rate 2 Physical Exam General Appearance: The patient is alert, has no immediate need for airway protection and no signs of toxicity. Eyes: Pupils equal and round no pallor or injection. ENT, Mouth: Mucous membranes are moist. Respiratory: There are no retractions, lungs are clear to auscultation. Cardiovascular: RRR, no m/r/g Gastrointestinal: bilateral LQ ttp, suprapubic ttp, LLQ> RLQ, with + guarding, mild rebound ttp Neurological: alert, oriented, moves all ext Skin: Warm and dry, no rashes. Musculoskeletal: Extremities are nontender, nonswollen and have full range of motion. DIFFERENTIAL DIAGNOSIS: After history and physical exam differential diagnosis was considered for ovarian torsion, hemorrhagic mass, obstruction, diverticulitis, TOA, or other cause of pelvic pain Medical Decision Making Data Points Result Diagram: 01/12/1828 01/12/1828 Laboratory Hematology Test 01/12/18 08:15 01/12/18 08:28 Urine Color Yellow Urine Clarity Cloudy Urine pH 5.0 pH (4.8-9.5) Urine Specific [place] 1.020 Urine Protein Negative mg/dL (NEGATIVE) Urine Glucose (UA) Negative mg/dL (NEGATIVE) Urine Ketones Negative mg/dL (NEGATIVE) Urine Blood Negative (NEGATIVE) Urine Nitrite Negative (NEGATIVE) Urine Bilirubin Negative (NEGATIVE) Urine Urobilinogen 2.0 mg/dL (0.2-1.9) Urine Leukocyte Esterase Negative (NEGATIVE) Urine RBC 3 /HPF (0-2/HPF) Urine WBC 9 /HPF (0-5/HPF) Urine Squamous Epithelial Cells Many /LPF (</=FEW) Urine Bacteria Many /HPF (NONE-FEW) Urine Mucus Few /HPF (NONE-FEW) Red Blood Count 4.96 M/uL (4.17-5.56) Mean Corpuscular Volume 87.9 fL (80.0-96.0) Mean Corpuscular Hemoglobin 29.3 pg (26.0-33.0) Mean Corpuscular Hemoglobin Concent 33.4 g/dL (32.0-36.0) Red Cell Distribution Width 14.6 % (11.5-14.5) Mean Platelet Volume 6.9 fL (7.2-11.1) Neutrophils (%) (Auto) 49.1 % (39.4-72.5) Lymphocytes (%) (Auto) 41.4 % (17.6-49.6) Monocytes (%) (Auto) 7.1 % (4.1-12.4) Eosinophils (%) (Auto) 1.3 % (0.4-6.7) Basophils (%) (Auto) 1.1 % (0.3-1.4) Nucleated RBC Relative Count (auto) 0.0 /100WBC Neutrophils # (Auto) 3.2 K/uL (2.0-7.4) Lymphocytes # (Auto) 2.7 K/uL (1.3-3.6) Monocytes # (Auto) 0.5 K/uL (0.3-1.0) Eosinophils # (Auto) 0.1 K/uL (0.0-0.5) Basophils # (Auto) 0.1 K/uL (0.0-0.1) Nucleated RBC Absolute Count (auto) 0.00 K/uL Prothrombin Time 12.3 seconds (12.0-14.4) Prothromb Time International Ratio 0.92 Activated Partial Thromboplast Time 31 seconds (23-35) Sodium Level 137 mmol/L (137-145) Potassium Level 3.7 mmol/L (3.5-5.0) Chloride Level 106 mmol/L (98-107) Carbon Dioxide Level 24 mmol/L (22-31) Blood Urea Nitrogen 8 mg/dl (7-18) Creatinine 0.60 mg/dl (0.52-1.04) Glomerular Filtration Rate Calc > 60.0 Random Glucose 130 mg/dl (75-110) Calcium Level 9.0 mg/dl (8.4-10.2) Total Bilirubin 0.3 mg/dl (0.2-1.3) Aspartate Amino Transf (AST/SGOT) 17 U/L (0-35) Alanine Aminotransferase (ALT/SGPT) 27 U/L (0-56) Alkaline Phosphatase 63 U/L (0-126) Total Protein 7.0 g/dl (6.3-8.2) Albumin 3.9 g/dl (3.5-5.0) Chemistry Test 01/12/18 08:15 01/12/18 08:28 Urine Color Yellow Urine Clarity Cloudy Urine pH 5.0 pH (4.8-9.5) Urine Specific [place] 1.020 Urine Protein Negative mg/dL (NEGATIVE) Urine Glucose (UA) Negative mg/dL (NEGATIVE) Urine Ketones Negative mg/dL (NEGATIVE) Urine Blood Negative (NEGATIVE) Urine Nitrite Negative (NEGATIVE) Urine Bilirubin Negative (NEGATIVE) Urine Urobilinogen 2.0 mg/dL (0.2-1.9) Urine Leukocyte Esterase Negative (NEGATIVE) Urine RBC 3 /HPF (0-2/HPF) Urine WBC 9 /HPF (0-5/HPF) Urine Squamous Epithelial Cells Many /LPF (</=FEW) Urine Bacteria Many /HPF (NONE-FEW) Urine Mucus Few /HPF (NONE-FEW) White Blood Count 6.4 k/uL (4.5-11.0) Red Blood Count 4.96 M/uL (4.17-5.56) Hemoglobin 14.5 g/dL (12.0-16.0) Hematocrit 43.6 % (34.0-47.0) Mean Corpuscular Volume 87.9 fL (80.0-96.0) Mean Corpuscular Hemoglobin 29.3 pg (26.0-33.0) Mean Corpuscular Hemoglobin Concent 33.4 g/dL (32.0-36.0) Red Cell Distribution Width 14.6 % (11.5-14.5) Platelet Count 264 K/uL (150-450) Mean Platelet Volume 6.9 fL (7.2-11.1) Neutrophils (%) (Auto) 49.1 % (39.4-72.5) Lymphocytes (%) (Auto) 41.4 % (17.6-49.6) Monocytes (%) (Auto) 7.1 % (4.1-12.4) Eosinophils (%) (Auto) 1.3 % (0.4-6.7) Basophils (%) (Auto) 1.1 % (0.3-1.4) Nucleated RBC Relative Count (auto) 0.0 /100WBC Neutrophils # (Auto) 3.2 K/uL (2.0-7.4) Lymphocytes # (Auto) 2.7 K/uL (1.3-3.6) Monocytes # (Auto) 0.5 K/uL (0.3-1.0) Eosinophils # (Auto) 0.1 K/uL (0.0-0.5) Basophils # (Auto) 0.1 K/uL (0.0-0.1) Nucleated RBC Absolute Count (auto) 0.00 K/uL Prothrombin Time 12.3 seconds (12.0-14.4) Prothromb Time International Ratio 0.92 Activated Partial Thromboplast Time 31 seconds (23-35) Glomerular Filtration Rate Calc > 60.0 Calcium Level 9.0 mg/dl (8.4-10.2) Total Bilirubin 0.3 mg/dl (0.2-1.3) Aspartate Amino Transf (AST/SGOT) 17 U/L (0-35) Alanine Aminotransferase (ALT/SGPT) 27 U/L (0-56) Alkaline Phosphatase 63 U/L (0-126) Total Protein 7.0 g/dl (6.3-8.2) Albumin 3.9 g/dl (3.5-5.0) Coagulation Test 01/12/18 08:28 Prothrombin Time 12.3 seconds Prothromb Time International Ratio 0.92 Activated Partial Thromboplast Time 31 seconds Urinalysis Test 01/12/18 08:15 Urine Color Yellow Urine Clarity Cloudy Urine pH 5.0 pH (4.8-9.5) Urine Specific [place] 1.020 Urine Protein Negative mg/dL (NEGATIVE) Urine Glucose (UA) Negative mg/dL (NEGATIVE) Urine Ketones Negative mg/dL (NEGATIVE) Urine Blood Negative (NEGATIVE) Urine Nitrite Negative (NEGATIVE) Urine Bilirubin Negative (NEGATIVE) Urine Urobilinogen 2.0 mg/dL (0.2-1.9) Urine Leukocyte Esterase Negative (NEGATIVE) Urine RBC 3 /HPF (0-2/HPF) Urine WBC 9 /HPF (0-5/HPF) Urine Squamous Epithelial Cells Many /LPF (</=FEW) Urine Bacteria Many /HPF (NONE-FEW) Urine Mucus Few /HPF (NONE-FEW) ED Course/Re-evaluation ED Course Pt returns due to continued pain, not relieved by home pain medications Rpt US shows similar findings as yesterday; considered but doubt pathology missed by CT yesterday. I consulted OB for evaluation of surgical removal. After lengthy evaluation and discussion wtih pt, due to potential for tumor, OB deferred as previously planned, and pt agreeable to this. Pain medications have been ordered. Will rx nausea med and d/c with SRp's. Pt understands and agrees to plan. Decision to Disposition Date: Jan 12, 2018 Decision to Disposition Time: 12:39 Depart Departure Latest Vital Signs Vital Signs Date Time Temp Pulse Resp B/P (MAP) Pulse Ox O2 Delivery O2 Flow Rate FiO2 01/12/18 12:55 98 Nasal Cannula 2 01/12/18 12:53 135/87 (103) 01/12/18 12:25 66 01/12/18 08:21 97.8 18 Impression: Primary Impression: Adnexal mass Condition: Improved Disposition: HOME OR SELF-CARE New Scripts Promethazine Hcl (PROMETHAZINE HCL) 25 Mg Tablet 25 MG PO Q8H for Nausea, #20 TAB Prov: PRABHJOT BERGER MD 01/12/18 Oxycodone Hcl/Acetaminophen (OXYCODONE-ACETAMINOPHEN 5-325) 1 Each Tablet 1 EACH PO Q6H PRN for PAIN, #30 TAB Prov: ANGELINA MCNAIR DO 01/12/18 Departure Forms: ER Transition Record, Medications Reconciliation, Off Work/School Form, School or Work Release?: Work Number of days to be released: 5 Patient Portal Information Additional Instructions: As we have discussed, you have follow up arranaged for definitive care, but please return if worse or for any concerns. PRABHJOT BERGER MD Jan 12, 2018 08:30
[2018-01-12] MEDS ORDERED: ONDANSETRON 4 MG/2 ML VIAL ONE (08:35)
[2018-01-12] MEDS ORDERED: ONDANSETRON 4 MG/2 ML VIAL IVP ONE (08:40)
[2018-01-12 08:43] LABS: PLATELET COUNT, AUTOMATED 264 K/uL (150-450)
[2018-01-12 08:46] LABS: INR 0.92
--- NOTE | 2018-01-12 10:29 | RADIOLOGY IMAGING REPORT ---
FACILITY: [facility] [place] PATIENT NAME: Elvira Rey : 1970 MR: [id number] V: [id number] EXAM DATE: ORDERING PHYSICIAN: PRABHJOT BERGER TECHNOLOGIST: Location: [facility] Patient: Elvira Rey : 1970 Visit/Account:[id number] Date of Sevice: 01/12/2018 EXAMINATION: Pelvic ultrasound HISTORY: Follow-up right ovarian hemorrhagic cyst. Hysterectomy and left oophorectomy. COMPARISON: CT abdomen and pelvis and pelvic ultrasound 01/11/2018. PROCEDURE: Transvaginal ultrasound of the pelvis. FINDINGS: Right Ovary and adnexa: Right ovary contains a 2.2 cm hemorrhagic cyst and a 2.4 cm simple cyst, and measures overall 4.6 x 2.2 x 2.8 cm. The right ovary contains arterial and venous blood flow by dup delores Doppler ultrasound. The right ovary is surrounded by heterogeneous hematoma without blood flow, and mild amount of complicated fluid. The vaginal cuff appears normal. IMPRESSION: Right ovarian hemorrhagic cyst and simple cyst, partially surrounded by blood clot and complicated fl uid. No evidence of ovarian torsion. Recommend ultrasound follow-up in 6-12 weeks. Report Dictated By: Deanna Lee MD at 01/12/2018 10:15 AM Report E-Signed By: Deanna Lee MD at 01/12/2018 10:25 AM WSN:[id number]
--- NOTE | 2018-01-12 12:22 | History & Physical ---
History of Present Illness Age of Patient: 47 : 3 Para or TPAL: 2101 Chief Complaint Worsening abdominal pain. History of Present Illness Is a 47-year-old 3 para 03/30/2001 who presents to the emergency department with a chief complaint of abdominal pain. Patient reports that she started having pain Monday evening approximately midnight. Reports pain started in the middle aspect of her belly just below her belly button and is now lower in her pelvis and more closer to her right hip. Patient reports the pain felt like a cramping sensation but quickly turn into a stabbing sensation that started middle to right. Patient reports with onset of pain it was 9 out of 10. She was awoken out of bed with the pain. Patient came emergency department on 01/11/[address] and transvaginal ultrasound that showed right adnexal mass and normal blood flow to the right ovary. Patient was given by mouth pain medication and was given instructions to follow-up as an outpatient. Patient reports that this morning when she was having to work she got significantly dizzy and nauseated with pain back to 9 out of 10. Patient reports that she has taken [place], Aleve, Excedrin, and ibuprofen with minimal relief. Patient reports pain going from's 9 out of 10-5-6 out of 10 with pain medications. Patient reports that she has had similar pain in 2003 2004 just before her hysterectomy. Patient reports she had a abdominal hysterectomy secondary to bleeding and pain performed here in [facility] by Dr. valdez. Patient also reports that she had a left oophorectomy at that time. Patient was told they used her prior scar secondary to significant adhesions and scar tissue surrounding the bowel around her left ovary. Patient states pain is remarkably similar. Patient reports no change in weight reports being weight neutral. Does state that her jeans fit much looser but not around her abdomen. Patient denies any bowel problems reports every other day bowel movement with soft stool. Patient denies any fevers or chills. Denies any bladder problems. OB GEN history patient is a 012, history of 3 C-sections. Status post abdominal hysterectomy in 1999 for with left oophorectomy and right ovarian conservation. Patient denies any abnormal Pap smears prior to hysterectomy. Patient is not currently sexually active. Medical history denies any contributory medical history Medications: Patient is currently taking pain medications to include [place], Aleve, and Excedrin. Allergies: Aspirin (makes her shaky and low blood pressure), Ceftin (shaky and eye problems), albuterol (shaky) Surgical history: C-sections 3, total abdominal hysterectomy with left oophorectomy in 1999 for, multiple ear tubes. Right ankle pins, right knee scope. Social history patient reports half to 1 pack per day smoking. Denies alcohol use or recreational drug use including marijuana. Family history: Mother (had lung and bone cancer as well as diabetes), father hypertension, grandfather-maternal (bone and lung cancer). Patient phone number History Obstetrical History: Prior C/S X 3 Past Medical History: Denies any contributory history Allergies: Coded Allergies: aspirin (Verified Allergy, Mild, RASH, SHAKINESS, 01/12/18) cefuroxime (Verified Allergy, Mild, EYES DILATE, SHAKINESS, 01/12/18) albuterol (Verified Adverse Reaction, Unknown, shaky headache, 01/12/18) Social History: 1/2-1 ppd smoker. Denies ETOH. Denies any recreational drug use. Med Rec Home Meds Active Scripts Docusate Sodium (COLACE) 100 Mg Capsule, 100 MG PO BID for 10 Days, #20 CAPSULE Prov:PRABHJOT BERGER MD 01/11/18 Hydrocodone Bit/Acetaminophen (NORCO 5-325 TABLET) 1 Each Tablet, 1 EACH PO Q4- 6H for PAIN for 7 Days, #20 TAB Prov:PRABHJOT BERGER MD 01/11/18 Discontinued Scripts Tramadol Hcl (TRAMADOL HCL) 50 Mg Tablet, 50 MG PO Q6H PRN for PAIN, #12 TAB 0 Refills Prov:BEVERLY BENITEZ DO 12/26/17 Naproxen Sodium (ALEVE) 220 Mg Capsule, 440 MG PO TID, #30 CAPSULE Prov:BEVERLY BENITEZ DO 12/26/17 Review of Systems All Systems Reviewed/Normal: Yes, Except as Noted Constitutional: No Fever, No Weight Loss, No Weight Gain, No Chills, No Night Sweats, No Other Neurological: No Syncope, No Confusion, No Weakness, No Dizziness, No Slurred Speech, No Other Eyes: No Vision Change, No Loss of Vision, No Photophobia, No Other ENT: No Hearing Loss, No Sinus Congestion, No Sore Throat, No Ear Ache, No Tin nitus, No Other Cardiovascular: No Chest Pain, No Palpitations, No Orthostatic Hypotension, No Other Respiratory: No Shortness of Breath, No Cough, No Wheezing, No Other Gastrointestinal: Nausea, Abdominal Pain Genitourinary: No Dysuria, No Hematuria, No Urinary Incontinence, No Other Musculoskeletal: No Pain, No Sprain, No Strain, No Impaired Mobility, No Other Psychiatric: No Depression, No Anxiety, No Other Exam General Exam Vital Signs Vital Signs Date Time Temp Pulse Resp B/P (MAP) Pulse Ox O2 Delivery O2 Flow Rate FiO2 01/12/18 10:00 105/75 (85) 01/12/18 09:57 57 97 Nasal Cannula 2 01/12/18 08:21 97.8 18 General Apperance: Alert/Awake/No Acute Distress Neuro: No Gross deficits Eyes: Normal Extraocular Movement & Vison ENT: Normal Cardiovascular: Regular Rate and Rhythm Respiratory: Clear to Auscultation Abdomen: Other (soft non tender in three quadrants (RUQ, LUQ, LLQ), Negative for rebound or guarding. Tender to deep but not light palpation in RLQ. No rebound or guarding. ) : Normal Musculoskeletal: No Weakness/Pain Extremities: No Cyanosis,Clubbing or Edema Integumentary: Skin Intact without Lesions or Rash Psychological: Alert & Oriented X3 Medical Decision Making Data Points Result Diagram: 01/12/18 0828 01/12/18 0828 Imaging Ultrasound/Imaging Patient name: Elvira Rey Date of study 11/21/2011 Findings: Patient is status post hysterectomy and left oophorectomy. The uterus and left ovary are not seen. There is a mild to moderate amount of free fluid in the pelvis. There is a large complex partial cystic partially solid mass in the right adnexa measuring 5.9 x 5.9 x 4.2 cm and has increased in size when compared to the 2008 ultrasound etiology would include both benign and malignant mass. Follow-up is recommended. Impression: A 5.9 cm complex mass in the right adnexa has increased in size compared to the prior study of 12/10/2007. The differential diagnosis would include both benign and malignant etiologies therefore follow-up is recommended. Report dictated by Myranda Velásquez 11/21/11 Location: [facility] [place] Patient: Elvira Rey : 1970 Visit/Account:[id number] Date of Sevice: 01/11/2018 COMPUTED TOMOGRAPHY ABDOMEN AND PELVIS WITH INTRAVENOUS CONTRAST DATE OF EXAM: 01/11/2018 4:53 AM INDICATION: Left-sided abdominal pain. COMPARISON: . TECHNIQUE: Contrast enhanced abdomen and pelvis CT performed during the injection of 75 ml of Isovue 370. Sagittal and coronal reconstructions were performed. One of the following dose optimization techniques was utilized in the performance of this exam: Automated exposure control; adjustment of the mA and/or kV according to the patient's size; or use of an iterative reconstruction technique. Specific details can be referenced in the facility's radiology CT exam operational policy. FINDINGS: Lung bases: Mild scarring/atelectasis. Liver and hepatic vasculature: Liver is borderline enlarged. Subcentimeter hypoattenuating lesion in segment 6 likely represents a cyst or hemangioma, image 65 series 2. No suspicious lesion or acute abnormality. Gallbladder and bile ducts: Normal. Spleen: Calcified granulomas. Pancreas: Normal. Adrenals: Mildly nodular. Kidneys, ureters and bladder: Normal. Retroperitoneum and aorta: Nonaneurysmal aorta with mild atherosclerosis. No adenopathy. GI tract, mesentery and peritoneum: No evidence of obstruction. No pneumatosis or pneumoperitoneum. Moderate sigmoid diverticulosis. Appendix appears nonacute. Trace free fluid along the right paracolic gutter. Uterus and adnexa: Hysterectomy. There is a markedly heterogeneous structure in the pelvis that likely arises from the right adnexa measuring approximately 8.9 x 5.5 cm on axial image 125 series 2. There may be adjacent fluid and/or blood products. This is confluent with the adjacent appendix, cecum and sigmoid colon. Bones and soft tissues: No acute abnormality or suspicious lesion. IMPRESSION: Indeterminate heterogeneous pelvic lesion in the setting of reported hysterectomy. The lesion and surrounding fluid/soft tissue are inseparable from the cecum, appendix and adjacent sigmoid colon. Top differential considerations include ovarian neoplasm with or without torsion, other primary pelvic neoplasm, hemorrhage, and tubo-ovarian abscess, though this last may be less likely given the lack of prominent surrounding inflammation and history of hysterectomy. There was a complex lesion in the right adnexa on prior examinations and the current clinical situation is likely at least in part related to that. Sequela of diverticulitis is also considered less likely. Pelvic ultrasound may be of limited benefit for further evaluation, but is a reasonable next step given the broad differential. Dr. Carbajal discussed this case with SHON GRIJALVA on 01/11/2018 6:08 AM. Report Dictated By: Venancio Carbajal MD at 01/11/2018 5:46 AM Location: [facility] [place] Patient: Elvira Rey : 1970 Visit/Account:[id number] Date of Sevice: 01/12/2018 EXAMINATION: Pelvic ultrasound HISTORY: Follow-up right ovarian hemorrhagic cyst. Hysterectomy and left oophorectomy. COMPARISON: CT abdomen and pelvis and pelvic ultrasound 01/11/2018. PROCEDURE: Transvaginal ultrasound of the pelvis. FINDINGS: Right Ovary and adnexa: Right ovary contains a 2.2 cm hemorrhagic cyst and a 2.4 cm simple cyst, and measures overall 4.6 x 2.2 x 2.8 cm. The right ovary contains arterial and venous blood flow by duplex Doppler ultrasound. The right ovary is surrounded by heterogeneous hematoma without blood flow, and mild amount of complicated fluid. The vaginal cuff appears normal. IMPRESSION: Right ovarian hemorrhagic cyst and simple cyst, partially surrounded by blood clot and complicated fluid. No evidence of ovarian torsion. Recommend ultraso und follow-up in 6-12 weeks. Report Dictated By: Deanna Lee MD at 01/12/2018 10:15 AM Assessment and Plan DEVOPS ARCHITECT Assessment: Stable Problems: (1) Ovarian mass, right Assessment & Plan: Discussed options with patient to include possibility of surgical management versus expectant conservative management. Patient had CA-125 drawn in the emergency department on 01/11/2018 with those results still currently pending. Because of patient's complex surgical history and the possibility of malignancy we discussed options to include having surgery performed by a [employer] oncologist in the [facility]. Because the CA- 125 is currently unknown and patient's surgical history and the CT of the abdomen and pelvis that reports the mass being confluent with the cecum I suggested with the patient that she do have the surgery performed by [employer] oncologist after they evaluated her. Patient does not have an acute abdomen and can be discharged from the emergency department will send prescription for Percocet to get her through the weekend to her consultation with [employer] oncology. [place] [employer] oncology rep or called and informed of the patient's status. They will inform me later of her time to be seen in the office next week. By then we should've the CA-125 results. Will have patient follow up in office next week she is unable to get in to [employer] oncology. Emergency precautions given to patient patient follow up accordingly. (2) Adnexal mass Status: Acute ANGELINA MCNAIR DO Jan 12, 2018 12:22
[2018-01-12] MEDS ORDERED: OXYC-373 PO (12:24)
[2018-01-12] MEDS ORDERED: PROM-110 PO (12:50)
[2018-01-12 12:53] VITALS: BP 135/87
== END 2018-01-12 13:04 | disposition home or self-care (01) ==
LOC: ER 08:56
DX: R19.09 Other intra-abdominal and pelvic swelling, mass and lump (principal)
CPT/HCPCS: 76830; 81001; 85025; 85610; 85730; 86850; 86900; 86901; 96374; 96375; 96376; 99284; J2405; J3010; 82040; 82247; 82310; 82374; 82435; 82565; 82947; 84075; 84132; 84155; 84295; 84450; 84460; 84520